=== PATIENT | male | born 1960 | race Caucasian/White ===

== ENCOUNTER 2020-11-07 18:08 | Inpatient (IN) | payer OTHER ==
[~2020-11-07] VITALS: Ht 185.4 cm; Wt 105.7 kg
[2020-11-07 18:28] VITALS: BP 165/100
[2020-11-07 18:52] LABS: ABSOLUTE NEUTROPHILS 3.8 thou/uL (1.4-8.2); BASOPHILS 0.8 % (0.0-2.0); EOSINOPHILS 3.4 % (0.0-3.0); HEMATOCRIT 48.2 % (42.0-52.0); HEMOGLOBIN 16.6 gm/dL (14.0-18.0); LYMPHOCYTES 32.8 % (24.0-44.0); MCH 31.1 pg (26.0-34.0); MCHC 34.5 g/dL (28.0-37.0); MCV 90.1 fL (80.0-100.0); MONOCYTES 8.7 % (1.0-8.0); PLATELET COUNT 198 thou/uL (150-400); POLYS 54.3 % (36.0-66.0); RBC 5.35 mil/uL (4.50-6.00); RDW 12.9 % (10.5-14.5)
[2020-11-07 18:59] LABS: ANION GAP 12 mmol/L (7-16); BUN 21 mg/dL (7-18); CALCIUM 8.6 mg/dL (8.5-10.1); CHLORIDE 102 mmol/L (98-107); CO2 23 mmol/L (21-32); CREATININE 1.3 mg/dL (0.7-1.3); GLUCOSE 115 mg/dL (74-106); POTASSIUM 3.9 mmol/L (3.5-5.1); SODIUM 137 mmol/L (136-145)
[2020-11-07 19:09] LABS: ALBUMIN 3.6 g/dL (3.4-5.0); SGOT 35 U/L (15-37); SGPT 63 U/L (30-65); TOTAL BILIRUBIN 0.4 mg/dL (0.2-1.0); TOTAL PROTEIN 6.9 g/dL (6.4-8.2); TROPONIN-I <0.06 ng/mL (<0.06)
[2020-11-07 20:07] LABS: MAGNESIUM 2.3 mg/dL (1.8-2.4)
[2020-11-07 20:33] VITALS: BP 170/105
[2020-11-07 21:20] VITALS: BP 151/73
[2020-11-07 21:39] VITALS: BP 161/88
[2020-11-08 01:57] LABS: ANION GAP 10 mmol/L (7-16); BUN 19 mg/dL (7-18); CALCIUM 8.3 mg/dL (8.5-10.1); CHLORIDE 103 mmol/L (98-107); CHOLESTEROL 175 mg/dL (<200); CO2 25 mmol/L (21-32); CREATININE 1.3 mg/dL (0.7-1.3); GLUCOSE 167 mg/dL (74-106); HDL CHOLESTEROL 45 mg/dL (>40); LDL CHOLESTEROL 110 mg/dL (<100); SODIUM 138 mmol/L (136-145); TC:HDL 3.9 Ratio (Not establshd); TRIGLYCERIDE 100 mg/dL (<150); TROPONIN-I <0.06 ng/mL (<0.06); VLDL 20 mg/dL (<40)
[2020-11-08 01:58] LABS: SERUM ASSESSMENT Clear
[2020-11-08 04:45] VITALS: BP 151/84
--- NOTE | 2020-11-08 06:37 | EKG ---
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
--- NOTE | 2020-11-08 06:59 | NUR ---
PATIENTS CARE WERE ASSUMED FROM ED. PATIENT WAS ASSESSED AND MEDS WERE PASSED. PATIENT CONTINUES TO HAD INTERMITTENT RUNS OF VTACH. FROME 10 TO 14 SEC RUNS. ALL DOCUMENTED IN THE CHART WITH STRIPS. PATIENT WAS ABLE TO SLEEP SEVEN TO EIGHT HOURS THIS SHIFT. ROUNDS WERE DONE. THE BED IS IN A LOW AND LOCKED POSITION. ALARM OFF DUE TO PATIENT IS INDEPENDENT IN HIS ROOM.
[2020-11-08 08:10] VITALS: BP 147/90
--- NOTE | 2020-11-08 08:15 | NUR ---
ASSUMED PT CARE AT 0700. PT IN BED RESTING. ASSESSMENT PERFORMED CHARTED. PT VOICES NO CONCERNS AT THIS TIME. VSS. WILL CONTINUE TO MONITOR AND FOLLOW POC.
--- NOTE | 2020-11-08 10:34 | NUR ---
Met with patient who admits with dizziness. He has friend at bedside. Patient reports no health insurance. 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 Discussed [employer] to meet with him to discuss if qualifies for medicaid. 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 Patient has no PCP. [facility] and [facility] info. Encouraged to f/u on outpatient basis. Gave good RX card.
[2020-11-08 10:49] LABS: AMP/METHAMP POSITIVE (Negative); BARBITURATES Negative (Negative); BENZODIAZEPINES Negative (Negative); COCAINE Negative (Negative); METHADONE Negative (Negative); OPIATES Negative (Negative); PCP Negative (Negative)
--- NOTE | 2020-11-08 11:12 | 2DMMODE ---
[facility] [address] [place] [address] 2 D/M-MODE ECHOCARDIOGRAM Name: GASTON ENNIS Room #: 213-P ADM IN M.R.#: [id number] Admission: 11/07/20 Attend Phys: Reginaldo Pulido MD Discharge: Date of : 64 Report #: [id number] THIS REPORT FOR: cc: FAM - No family physician/PCP FAM - No family physician/PCP Sherwin Nieves MD ~ APPROVED REPORT Study performed: 11/08/2020 10:23:22 EXAM: Comprehensive 2D, Doppler, and color-flow Echocardiogram Patient Location: Bedside Room #: 213 Status: routine BSA: 2.27 HR: 66 bpm BP: 147/90 mmHg Rhythm: NSR Other Information Study Quality: Good Indications Arrhythmia Ventricular tachycardia 2D Dimensions RVDd: 34.76 mm IVSd: 9.18 (7-11mm) LVOT Diam: 21.34 (18-24mm) LVDd: 49.46 mm PWd: 10.54 (7-11mm) Ascending Ao: 33.78 (22-36mm) LVDs: 36.83 (25-40mm) Left Atrium: 38.30 (27-40mm) Aortic Root: 31.56 mm IVC: 13.00 mm Volumes Left Atrial Volume (Systole) Single Plane 4CH: 39.98 mL Single Plane 2CH: 54.96 mL LA ESV Index: 24.00 mL/m2 Aortic Valve AoV Peak David.: 1.16 m/s AO Peak Gr.: 5.41 mmHg LVOT Max P.99 mmHg LVOT Max V: 0.86 m/s [facility] [address] [place] [address] 2 D/M-MODE ECHOCARDIOGRAM Name: ENNISGASTON CHANDA Room #: 213-P [facility] IN ..#: [id number] Admission: 11/07/20 Attend Phys: Reginaldo Pulido MD Discharge: Date of : 64 Report #: [id number] MEJIA Vmax: 2.65 cm2 Mitral Valve E/A Ratio: 1.2 MV Decel. Time: 197.57 ms MV E Max David.: 0.95 m/s MV A David.: 0.80 m/s MV PHT: 57.29 ms IVRT: 110.73 ms Pulmonary Valve PV Peak David.: 1.15 m/s PV Peak Gr.: 5.25 mmHg Pulmonary Vein P Vein S: 0.53 m/s P Vein A: 0.23 m/s P Vein D: 0.39 m/s P Vein A Dur.: 101.5 msec P Vein S/D Ratio: 1.36 Left Ventricle The left ventricle is normal size. There is normal LV segmental wall motion. There is normal left ventricular wall thickness. Left ventricular systolic function is borderline. LVEF is 50%. Grade II - pseudonormal filling dynamics. Right Ventricle The right ventricle is normal size. The right ventricular systolic function is normal. Atria The left atrium size is normal. The right atrium size is normal. Aortic Valve The aortic valve is normal in structure. No aortic regurgitation is present. There is no aortic valvular stenosis. Mitral Valve The mitral valve is normal in structure. There is no mitral valve regurgitation noted. No evidence of mitral valve stenosis. Tricuspid Valve The tricuspid valve is normal in structure. There is no tricuspid valve regurgitation noted. Pulmonic Valve The pulmonary valve is normal in structure. There is no pulmonic [address] [address] 2 D/M-MODE ECHOCARDIOGRAM Name: GASTON ENNIS Room #: 213-P [facility] IN .R.#: [id number] Admission: 11/07/20 Attend Phys: Reginaldo Puldio MD Discharge: Date of : 64 Report #: [id number] valvular regurgitation. Great Vessels The aortic root is normal in size. IVC is normal in size and collapses >50% with inspiration. Pericardium There is no pericardial effusion. <Conclusion> The left ventricle is normal size. LVEF is 50%. The aortic valve is normal in structure. The mitral valve is normal in structure. The tricuspid valve is normal in structure. The pulmonary valve is normal in structure. The aortic root is normal in size. There is no pericardial effusion. <ELECTRONICALLY SIGNED> By: Sherwin Nieves MD 11/08/20 1112 11 11 Sherwin Nieves MD /INF
--- NOTE | 2020-11-08 11:36 | EKG ---
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: DALLAS : 1960 Requested By: Cecy Prather Order Number: [id number] MD: Tommie Monte Measurements Intervals [place] Rate: 71 P: 49 [place]: 144 QRS: 29 QRSD: 90 T: 84 QT: 394 QTc: 429 Interpretive Statements Sinus rhythm Baseline wander in lead(s) V1,V2 Compared to ECG 11/07/2020 18:15:06 T-wave abnormality no longer present Electronically Signed On 11-08-2020 11:36:44 CDT by Tommie Monte [email or web address] <ELECTRONICALLY SIGNED> By: Tommie Monte MD, [facility] 11/08/20 1136 2 2 Tommie Monte MD, [facility] /EPI
[2020-11-08 11:54] VITALS: BP 147/97
[2020-11-08 15:12] VITALS: BP 153/87
--- NOTE | 2020-11-08 16:06 | EKG ---
[address] [place] [address] ELECTROCARDIOGRAM REPORT Name: GASTON ENNIS Room #: 213-P ADM IN M.R.#: [id number] Admission: 11/07/20 Attend Phys: Reginaldo Pulido MD Discharge: Date of : 64 Report #: [id number] [facility] Test Date: 2020-11-07 Test Time: 20:17:50 Pat Name: GASTON ENNIS Department: Room: 213 P Gender: M Roll Tester: unknown : 1960 Requested By: Bandar Richey Order Number: [id number] MD: Eh Raphael Measurements Intervals [place] Rate: 77 P: 40 AR: 153 QRS: 12 QRSD: 106 T: 91 QT: 393 QTc: 445 Interpretive Statements Sinus rhythm Atrial premature complex Probable left atrial enlargement Abnormal R-wave progression, early transition Nonspecific T abnormalities, lateral leads Baseline wander in lead(s) I,III,aVR,aVL,aVF Compared to ECG 11/07/2020 18:15:06 Electronically Signed On 11-08-2020 16:06:15 CDT by Eh Raphael [email or web address] <ELECTRONICALLY SIGNED> By: Eh Raphael MD 11/08/20 1606 16 16 Eh Raphael MD /EPI
--- NOTE | 2020-11-08 16:12 | NUR ---
PTS AMIO CHANGED TO 0.5MG/HR OR 16.66ML/HR AT 1615. PT WILL CONTINUE AT THIS DOSE FOR 18 HOURS.
--- NOTE | 2020-11-08 16:17 | NUR ---
PT RETURNED FROM [employer] AT 1530, PT DENIES PAIN AT THIS TIME. VSS. ASSESSMENT UNCHANGED. PTS GROIN SITE IS CLEAN DRY WITH DRESSING INTACT, NO HEMOTOMA PRESENT. PTS FRIENDS AT BEDSIDE. PT GIVEN A BOX LUNCH. WHEN CHECKING ON PATIENT AT 1615, PT ASLEEP. WILL CONTINUE TO MONITOR AND FOLLOW POC.
[2020-11-08 19:59] VITALS: BP 149/88
[2020-11-09 00:06] LABS: GLYCOHEMOGLOBIN (HGB A1C) 5.9 % (4.8-5.6)
[2020-11-09 00:18] VITALS: BP 137/84
[2020-11-09 03:29] LABS: HEMATOCRIT 46.1 % (42.0-52.0); HEMOGLOBIN 15.8 gm/dL (14.0-18.0); MCH 31.3 pg (26.0-34.0); MCHC 34.3 g/dL (28.0-37.0); MCV 91.4 fL (80.0-100.0); RBC 5.05 mil/uL (4.50-6.00); RDW 12.6 % (10.5-14.5); WBC 6.9 thou/uL (4.0-11.0)
[2020-11-09 03:44] VITALS: BP 135/79
[2020-11-09 04:55] LABS: CALCIUM 8.7 mg/dL (8.5-10.1); CREATININE 1.2 mg/dL (0.7-1.3); POTASSIUM 4.2 mmol/L (3.5-5.1)
--- NOTE | 2020-11-09 06:41 | NUR ---
ASSUMED CARE AT 1900. PT DENIED PAIN, NAUSEA, OR SOB. AMIO GTT INFUSING OVERNIGHT. RIGHT GROIN SITE C/D/I, NO HEMATOMA NOTED. PT IN SR MUCH OF THE NIGHT, VERY FEW TIMES OF NONSUST VTACH, ALL LESS THAN 6 BEATS. THIS AM, PT SB IN 50'S, OCCASIONALLY DIPPING INTO UPPER 40'S; SPOKE TO DR. SMITH AT 0627, HE ORDERED AMIO GTT TO STAY RUNNING AT THIS TIME, AND CARDIOLOGY WOULD CHANGE MED ORDERS WHEN THEY ROUND THIS AM. NO OTHER CONCERNS, WILL CONTINUE TO MONITOR.
[2020-11-09 07:15] VITALS: BP 143/82
[2020-11-09 11:30] VITALS: BP 145/84
[2020-11-09 16:00] VITALS: BP 138/72
--- NOTE | 2020-11-09 19:04 | NUR ---
RN ASSUMED PT'S CARE AT 0700AM, PT IS A&OX3, PT HAD CATH-LAB DONE 11/08/20, PT'S R GROIN ACCESS DRESSING IS CDI,RN HAS REPORTED TO DR ABOUT PT STILL HAS SB ( HR 56-59 ) TODAY, BUT PT DENIES SOB AND DIZZINESS , PT GETS UP TO BATH ROOM BY HIMSELF, PT DENIES CHEST PAIN BT THIS TIME. PT'S VS ARE STABLE BT THIS TIME.
[2020-11-09 19:31] VITALS: BP 137/79
[2020-11-10 03:20] VITALS: BP 144/75
--- NOTE | 2020-11-10 06:48 | NUR ---
ASSUME CARE 1900. PT/VITALS STABLE. DENIES ANY PAIN UP AD MARIO. NO DISTRESS/ADEQUATE REST NOTED THROUGH THE NIGHT. SB ON MONITOR WITH NO EPISODES OF VTACH NOTED. GROIN SITE IS CDI. ASSESSMENT CHARTED. PROGRESSING WELL WITH POC. PLAN IS POSSIBLE DISCHARGE TODAY. WILL CONTINUE TO MONITOR AND FOLLOW WITH POC
[2020-11-10 07:20] VITALS: BP 137/79
--- NOTE | 2020-11-10 08:23 | NUR ---
ASSUMED PT CARE AT 0700. PT RESTING AT THAT TIME. 0800, PT SITTING UP IN BED EATING BREAKFAST, ASSESSMENT PERFORMED CHARTED. PT VOICES CONCERNS OF BEING D/C TODAY. PT STATES HE WOULD LIKE TO BE D/C DEBRA. VSS. WILL CONTINUE TO MONITOR AND FOLLOW POC.
[2020-11-10] MEDS ORDERED: METOPROLOL SUCC50 MG PO (08:40)
[2020-11-10] MEDS ORDERED: PACERONE100 MG PO (08:40)
[2020-11-10] MEDS ORDERED: LIPITOR 20 MG T20 M1 PO (08:40)
[2020-11-10] MEDS ORDERED: BAYER CHEWABLE81 MG PO (08:40)
[2020-11-10 09:58] VITALS: BP 137/79
--- NOTE | 2020-11-10 11:42 | NUR ---
Pt dc'd to home this morning. Two scripts vouched per the [facility]. The pt will be back later today to pick them up and he is aware that they close at 3:30. He has the [employer] packet and states he is aware of options for f/u care.
== END 2020-11-10 10:58 | disposition home or self-care (01) | DRG 287 ==
LOC: ER 18:08 → EROBS 20:20 → 2N 21:23
PROVIDERS: Nurse Practitioner; Nurse Practitioner Family; Physician Assistant; ADMIT Hospitalist; ATTEND Hospitalist
PROC: 4A033BC Measurement of Arterial Pressure, Coronary, Percutaneous Approach (ICD-10-PCS; principal; 2020-11-08)
PROC: 4A023N7 Measurement of Cardiac Sampling and Pressure, Left Heart, Percutaneous Approach (ICD-10-PCS; principal; 2020-11-08)
PROC: B2111ZZ Fluoroscopy of Multiple Coronary Arteries using Low Osmolar Contrast (ICD-10-PCS; principal; 2020-11-08)
DX: I47.1 Supraventricular tachycardia (principal); I25.10 Atherosclerotic heart disease of native coronary artery without angina pectoris; F17.210 Nicotine dependence, cigarettes, uncomplicated; F10.10 Alcohol abuse, uncomplicated; F19.10 Other psychoactive substance abuse, uncomplicated; Z60.2 Problems related to living alone; E78.5 Hyperlipidemia, unspecified; I10 Essential (primary) hypertension; Z88.0 Allergy status to penicillin; Z83.3 Family history of diabetes mellitus; Z82.49 Family history of ischemic heart disease and other diseases of the circulatory system; Z79.82 Long term (current) use of aspirin; Z79.899 Other long term (current) drug therapy; Z71.6 Tobacco abuse counseling; Z71.41 Alcohol abuse counseling and surveillance of alcoholic
CPT/HCPCS: 10081